=== PATIENT | male | born 1990 | race Caucasian/White ===

== ENCOUNTER 2016-11-12 09:34 | Emergency (ER) | payer OTHER ==
[~2016-11-12] VITALS: Ht 208.3 cm; Wt 158.8 kg
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
--- NOTE | 2016-11-12 11:17 | Diagnostic Imaging Report ---
4 views of the left knee. INDICATION: Injury. FINDINGS: There is no fracture, dislocation or radiopaque foreign body. No significant effusion seen. The joint spaces appear unremarkable. IMPRESSION: Unremarkable exam. Dictated by: Dictated on workstation # [id number]
[2016-11-12 11:52] VITALS: BP 137/83
== END 2016-11-12 11:52 | disposition home or self-care (01) ==
LOC: ER 09:37
DX: Z04.3 Encounter for examination and observation following other accident (principal)
CPT/HCPCS: 73564; 99282